=== PATIENT | female | born 1990 | race Caucasian/White ===

== ENCOUNTER 2017-04-13 16:46 | Inpatient (IN) ==
[2017-04-13 21:44] LABS: Basophils % 0.1 %; Eosinophils # 0.1 K/mcL (0.0-0.6); Eosinophils % 0.7 %; Hematocrit 31.1 % (35.3-44.9); Hemoglobin 9.9 g/dL (11.5-15.4); Immature Granulocytes % 1.5 % (0-4); Lymphocytes # 1.4 K/mcL (0.6-4.6); Lymphocytes % 18.4 %; Mean Corpuscular HGB Conc 31.8 g/dL (31.6-35.5); Mean Corpuscular Hemoglobin 25.5 pg (28.0-33.3); Mean Corpuscular Volume 80.2 fL (83.0-100.0); Mean Platelet Volume 10.4 fL (9.4-12.4); Monocytes # 0.4 K/mcL (0.0-1.3); Neutrophils # 5.5 K/mcL (1.6-8.9); Platelet Count 198 K/mcL (140-400); Red Blood Count 3.88 M/mcL (3.82-4.97); Red Cell Distribution Width 13.2 % (11.5-14.5); Segmented Neutrophils % 74.3 %
[2017-05-10] MEDS ORDERED: Famotidine 20 MG/2 ML VIAL IVP PRN (06:48)
[2017-05-10] MEDS ORDERED: Ondansetron 4 MG/2 ML VIAL IVP PRN (06:48)
[2017-05-10] MEDS ORDERED: Naloxone 0.4 MG/ML INJ IVP PRN (06:48)
[2017-05-10] MEDS ORDERED: *HR* Nalbuphine 20 MG/ML AMPUL IVP PRN (06:48)
[2017-05-10] MEDS ORDERED: miSOPROStol 25 MCG TABLET VG PRN (06:53)
[2017-05-10] MEDS ORDERED: Ringers Solution, Lactated 1,000 ML IVC SCH (07:00)
[2017-05-10] MEDS ORDERED: Oxytocin 20 units/ LR 1000 mL 20 UNIT/1,000 ML BAG IVC SCH ×2 (07:00→16:32)
[2017-05-10 07:18] LABS: Basophils % 0.3 %; Eosinophils # 0.1 K/mcL (0.0-0.6); Eosinophils % 0.7 %; Hematocrit 34.4 % (35.3-44.9); Hemoglobin 10.7 g/dL (11.5-15.4); Immature Granulocytes % 1.3 % (0-4); Lymphocytes # 2.1 K/mcL (0.6-4.6); Mean Corpuscular HGB Conc 31.1 g/dL (31.6-35.5); Mean Corpuscular Hemoglobin 24.8 pg (28.0-33.3); Mean Corpuscular Volume 79.6 fL (83.0-100.0); Mean Platelet Volume 9.7 fL (9.4-12.4); Monocytes # 0.4 K/mcL (0.0-1.3); Monocytes % 5.8 %; Neutrophils # 4.2 K/mcL (1.6-8.9); Platelet Count 170 K/mcL (140-400); Red Blood Count 4.32 M/mcL (3.82-4.97); Red Cell Distribution Width 18.6 % (11.5-14.5); Segmented Neutrophils % 61.9 %
--- NOTE | 2017-05-10 10:11 | OB Labor Progress Note ---
Date of Encounter: 05/10/17 Time of Encounter: 10:10 Labor Progress Note - Subjective Subjective: Pt reports mild discomfort with contractions. - Cervix Cervix: 4/80/-1 - Heart Tones Heart Tones: Category I - [place]: 2.5-3 minutes - Interventions Interventions: AROM for small amount clear fluid. - Plan Plan: Continue to monitor. Epidural when requested. Anticipate .
--- NOTE | 2017-05-10 10:14 | OB/GYN History & Physical ---
Date of Encounter: 05/10/17 Time of Encounter: 10:19 Assessment and Plan (1) 40 weeks gestation of Current visit: Yes Status: Acute has received po cytocec artificial rupture of membranes completed with this physical exam epidural when desired anticipate vaginal delivery (2) Rubella non-immune status, antepartum Current visit: Yes Status: Acute vaccine to be offered before discharge History of Present Illness Chief complaint: induction HPI: Ms. Enamorado is a 26 year old female at 40.0 weeks gestation here for induction of labor. Her has been uncomplicated. She denies loss of fluid, vaginal bleeding, dizziness, blurred vision. Reports good movement. Labs: GBS negative, Rubella non-immune, HIV negative, Hep B negative, syphilis negative, VZV immune blood type AB+ Past Med Surg Social Fam HX - Past Medical History Medical history: no medical history Psychiatric history: no psych history - Past Surgical History Surgical History: no surgical history - Social History Smoking Status: Never smoker Alcohol use: none Drug use: none - Family History Mother History Unknown: Yes Living Status: Hx Family Medical Disorders: No (reports no history) Obstetrical History - Pregnancies : 3 Para: 1 Term: 1 : 0 Ab's: 1 Livin Medications and Allergies Ferrous Sulfate 05/10/17 [History] Allergies No Known Allergies Allergy (Verified 05/10/17 06:55) Review of System OB - Constitutional Constitutional ROS IM: as per HPI Exam - Constitutional Constitutional: well developed, well nourished, no acute distress, average body habitus - HEENT HEENT: Normocephaly, Mucus Membranes Moist - Neck Neck exam: supple - Lungs Respiratory exam: CTAB - Cardiovascular Cardiovascular exam: RRR, +S1, +S2 - Abdomen Abdomen: Present: bowel sounds normal, gravid, non tender - Extremities Extremities exam: normal capillary refill, normal inspection, pedal edema - Cervix Dilation: 4 Effacement: 80 Station: -1 Results Result Diagrams: 05/10/17 07:00 Abnormal lab results Hgb 10.7 g/dL (11.5-15.4) L 05/10/17 07:00 Hct 34.4 % (35.3-44.9) L 05/10/17 07:00 MCV 79.6 fL (83.0-100.0) L 05/10/17 07:00 MCH 24.8 pg (28.0-33.3) L 05/10/17 07:00 MCHC 31.1 g/dL (31.6-35.5) L 05/10/17 07:00 RDW 18.6 % (11.5-14.5) H 05/10/17 07:00 All other labs normal. - VTE Reasons for not Prescribing Prophylaxis: Treatment not Indicated - Low risk for VTE
[2017-05-10] MEDS ORDERED: Ringers Solution, Lactated 500 ML IVC ONE (10:33)
[2017-05-10] MEDS ORDERED: *HR* Ropivacaine/PF 0.2% 10 ML AMPUL EP ONE (10:33)
[2017-05-10] MEDS ORDERED: *HR* FentaNYL (PF) 100 MCG/2 ML VIAL EP ONE (10:33)
[2017-05-10] MEDS ORDERED: EPHEDrine 50 MG/ML VIAL IVP PRN (10:33)
--- NOTE | 2017-05-10 10:39 | Anesthesia Evaluation PreOp ---
Date of Encounter: 05/10/17 Time of Encounter: 10:35 - Past History Planned Operation: IVETTE Cardiac History: Denies any Significant Hx Pulmonary History: Denies Any Significant HX NURSES EDUCATOR History: Denies Any Significant HX Other Medical History: Denies Any Significant HX Anesthesia History: No Prior Anesthetic Complications : Yes Alcohol Use: none Drug use: none Medications and Allergies Ferrous Sulfate 05/10/17 [History] Allergies No Known Allergies Allergy (Verified 05/10/17 06:55) - Meds/Allergy Pre-op Review Medications Reviewed: Yes Allergies Reviewed: Yes Beta Blockers on Current Med List: No Anesthesia Results - Labs 05/10/17 07:00 Anesthesia Exam Height: 1.63m Weight: 109kg NPO (# of Hours): >4hr Pain Scale: 7 Pain Scale Used: Numeric (1 - 10) - HEENT Pupil (Motor): Pupils equal Mallampati: II Teeth: Normal Oral Opening: Greater than 3 - NURSES EDUCATOR LOC: Oriented NURSES EDUCATOR Motor: Normal RUE, Normal LUE, Normal RLE, Normal LLE, Normal Face NURSES EDUCATOR Sensory: Normal: RUE, LUE, RLE, LLE, Face - Cardiac Rhythm: Regular Murmur: None - Pulmonary Breath Sounds: bilateral Clear Respiratory Effort: Symmetrical Anesthesia Assess/Plan ASA Score: 2 Modified [place] Scale for Level of Consciousness: Cooperative, oriented, and tranquil Anesthetic Plan: Regional Autologous Blood: Yes Monitoring Plan: Standard Monitors Recovery Plan: Other
[2017-05-10] MEDS ORDERED: *HR* FentaNYL (PF) 100 MCG/2 ML VIAL ONE (10:41)
[2017-05-10] MEDS ORDERED: Epidural Premix (fent/bupiv) 110 ML EP ONE (10:41)
[2017-05-10] MEDS ORDERED: ROPIVACAINE HCL/PF 0.5% 30 ML VIAL ONE (10:41)
[2017-05-10] MEDS ORDERED: Epidural Premix (fent/bupiv) 110 ML EP SCH (10:45)
--- NOTE | 2017-05-10 11:25 | Anesthesia Procedures ---
Date of Encounter: 05/10/17 Time of Encounter: 10:44 Procedures: Anesthesia - Epidural/Spinal Patient ID/Chart reviewed: Yes Patient examined: Yes OB Eval: Gestational age: 40 OB Eval: : 3 OB Eval: Hx Para: 1 OB Eval: Contractions: Non-stressed pattern Consent Obtained: Yes Supplemental Oxygen: None/Room Air Site Prep: Aseptic Technique, Sterile prep and drape, 0.5% Chlorhexidine/Alcohol Patient position: upright Local Anesthetic: Lidocaine 1% Amount of Local Anesthetic used: 3 Touhy Needle Gauge: 18 Touhy Needle Depth (cm): 8 Catheter Depth at Skin (cm): 15 Test Dose (1.5% Lido + Epi): Volume given (mls): 5 Test Dose Result: Negative Loading Dose: Fentanyl (mcg): 100 Loading Dose: Other: Ropivacaine 0.5% 8mL Loading Dose Administered: Thru Catheter Infusion Med: 0.125% Bupivacaine w/ 2 mcg/ml Fentanyl Infusion Rate (mls/hr): 14 (Bolus 4mL q15min/ Max 3/hr) Catheter Secured in Place: Tegaderm, Tape Interspace Used: L3-L4 Loss of Resistance (JACQUELINE): Yes Blood: No CSF: No Paresthesia: No Procedure: x1 attempt. Patient tolerated well. Vitals + FHT's: VSS and FHR stable throughout procedure. See nursing documentation.
--- NOTE | 2017-05-10 14:29 | OB/GYN Procedure Note ---
Delivery - Delivery Date: 05/10/17 Provider: Cecelia Chua Intrapartum events: none Delivery induction: oxytocin Delivery augmentation: rupture of membranes Delivery monitor: external FHT Anesthesia: epidural Estimated Blood Loss: 150 - Repair Episiotomy: none Laceration Description: Perineal - 2nd Degree - Complications Delivery complications: none - Disposition Mom disposition: stable in LDR disposition: stable in LDR
[2017-05-10] MEDS ORDERED: Acetaminophen 325 MG TABLET PO PRN (16:32)
[2017-05-10] MEDS ORDERED: Sennosides 8.6 MG TABLET PO PRN (16:32)
[2017-05-10] MEDS ORDERED: Measles/Mumps/Rubella Vacc 0.5 ML VIAL SQ PRN (16:32)
[2017-05-10] MEDS ORDERED: Lanolin 7 G OINT...G. TP PRN (16:32)
[2017-05-10] MEDS ORDERED: Benzocaine/Menthol 56 GM AEROSOL SPRAY TP PRN (16:32)
[2017-05-10] MEDS: Ibuprofen 600 MG TABLET PO PRN ×2 (18:38→21:58)
[2017-05-11 07:46] VITALS: BP 120/83
[2017-05-11] MEDS: Ibuprofen 600 MG TABLET PO PRN ×2 (07:49→14:03)
--- NOTE | 2017-05-11 08:45 | Discharge Summary ---
Date of Encounter: 05/11/17 Time of Encounter: 08:42 - Discharge Diagnosis (1) Status post vaginal delivery Priority: Primary Status: Acute (2) Rubella non-immune status, antepartum Priority: Primary Status: Acute (3) 40 weeks gestation of Priority: Secondary Status: Acute - Discharge Medications Prescriptions: Ibuprofen [Motrin] 600 mg PO Q6HR PRN #15 tab PRN Reason: Cramping Home Medications: Ferrous Sulfate 05/10/17 [History] Ibuprofen [Motrin] 600 mg PO Q6HR PRN #15 tab 05/11/17 [Rx] Allergies/Adverse Reactions: Allergies No Known Allergies Allergy (Verified 05/10/17 06:55) Data Procedures and tests throughout hospitalization: Laboratory Tests 04/13/17 05/10/17 11:50 07:00 WBC 7.4 6.9 RBC 3.88 4.32 Hgb 9.9 L 10.7 L Hct 31.1 L 34.4 L MCV 80.2 L 79.6 L MCH 25.5 L 24.8 L MCHC 31.8 31.1 L RDW 13.2 18.6 H Plt Count 198 170 MPV 10.4 9.7 Immature Gran % 1.5 1.3 Seg Neutrophils % 74.3 61.9 Lymphocytes % 18.4 30.0 Monocytes % 5.0 5.8 Eosinophils % 0.7 0.7 Basophils % 0.1 0.3 Neutrophils # 5.5 4.2 Lymphocytes # 1.4 2.1 Monocytes # 0.4 0.4 Eosinophils # 0.1 0.1 Basophils # 0.0 0.0 Date of admission: 05/10/17 06:48 Consults: 05/10/17 16:32 Consult to Coat Checker [CONS] Routine Comment: Vaginal delivery, consult needed Discharging clinician: Sonal Lamas Anticipated date of discharge: 05/11/17 - Patient Status Disposition: Home, Self-Care Condition: Good Functional capacity at discharge: independent ambulation Overall status at discharge: patient is back to baseline - Discharge Instructions Follow Up With: Sonal Lamas DO [Resident] - - Diet and Activity Diet: regular diet Hospital Course Reason for admission: induction of labor Delivery: Episiotomy: none Laceration: 2nd degree (perineal) Other procedures: none complications: none Discharge diagnosis: IUP at term delivered baby: female Hospital course: Delivery - Delivery Date: 05/10/17 Provider: Cecelia Chua Intrapartum events: none Delivery induction: oxytocin Delivery augmentation: rupture of membranes Delivery monitor: external FHT Anesthesia: epidural Estimated Blood Loss: 150 - Repair Episiotomy: none Laceration Description: Perineal - 2nd Degree - Complications Delivery complications: none - Disposition Mom disposition: stable in LDR disposition: stable in LDR 26 y/o now delivered a viable female weight 3980g, APGARs 8/9 @ 1400hrs. Placenta delivered @ 1404hrs, 3VC, pitocin started, Infant delivered ZAC, EBL 150cc, 2nd degree laceration repaired in usual fashion with 3-0 vicryl , Mother and doing very well. Time Attestation: Total time spent providing and/or coordinating discharge services: Exam - Constitutional Vitals: Temp Pulse Resp BP Pulse Ox 97.7 F 85 14 120/83 98 05/11/17 07:45 05/11/17 07:45 05/11/17 07:45 05/11/17 07:45 05/11/17 07:45 General appearance IM: A&O X 3, answers questions appropriately - Respiratory Respiratory exam: Present: CTAB - Cardiovascular Cardiovascular exam IM: Present: RRR, +S1, +S2 - GI/Abdominal GI/Abdominal exam IM: normal bowel sounds, soft - Uterine Tone: Firm Uterus Position: 2 Fingers Below Umbilicus, Midline - Extremities Exam Extremities exam IM: Present: normal capillary refill, pedal edema (2+ pitting edema to midcalf, also edema of hands), warm
[2017-05-11] MEDS ORDERED: Prenatal Vit/FA 1 EACH TABLET PO SCH (09:00)
== END 2017-05-11 15:01 | disposition home or self-care (01) | DRG 775 ==
LOC: 1NENULAB 16:46 → LABOML 16:46 → 1NENUOBS 05-10 17:07
PROVIDERS: ADMIT Student in an Organized Health Care Education/Training Program; ATTEND Student in an Organized Health Care Education/Training Program